=== PATIENT | male | born 1960 | race Caucasian/White ===

== ENCOUNTER 2021-05-04 19:29 | Inpatient (IN) | payer BC, SELFPAY ==
--- NOTE | ~2021-05-04 | XR_ITS ---
XR knee LT 3V DATE: 05/04/2021 20:24 INDICATION: Fall. Pain behind patella. TECHNIQUE: 3 views including crosstable lateral COMPARISON: None FINDINGS: There is left knee arthroplasty without patellar resurfacing. There is moderate suprapatellar knee joint effusion. There is osteopenia. There is mild particular spurring of the patella. No fracture, dislocation, periosteal reaction or bone destruction is detected. There there are chronic soft tissue calcifications in the suprapatellar and infrapatellar area. IMPRESSION: Moderate suprapatellar knee joint effusion; no recent fracture or dislocation is evident Osteopenia Left knee arthroplasty Reviewed, dictated and finalized at location A. IMPRESSION: Moderate suprapatellar knee joint effusion; no recent fracture or d islocation is evident Osteopenia Left knee arthroplasty
--- NOTE | ~2021-05-04 | XR_ITS ---
EXAMINATION: XR knee LT 3V EXAM DATE: 05/09/2021 11:38 INDICATION: Increased left knee swelling and pain, fall one week ago. TECHNIQUE: Three projections of the left knee. Comparison is made to prior examination from 05/04/2021 . FINDINGS: Left knee arthroplasty hardware in expected position. There is been interval increase in s ize of the joint fluid, now large. There are no acute fractures identified. Breast. IMPRESSION: Intact arthroplasty hardware. Large joint effusion. Reviewed, dictated and finalized at location B.
--- NOTE | ~2021-05-04 | XR_ITS ---
XR chest 1V portable DATE: 05/04/2021 19:51 INDICATION: Syncope. Hypotension. TECHNIQUE: Portable AP chest on 05/04/2021 at 1948 hours COMPARISON: None FINDINGS: Normal heart size. No hilar or mediastinal enlargement. No pulmonary infiltrate or consolid ation, pleural effusion or pulmonary vascular congestion or pneumothorax. Status post lower anterior cervical spine surgical fusion. Diffuse idiopathic skeletal hyperostosis o f the thoracic spine. IMPRESSION: No active cardiopulmonary disease Reviewed, dictated and finalized at location A.
--- NOTE | ~2021-05-04 | CT_ITS ---
EXAMINATION: CT abdomen pelvis wo con EXAM DATE: 05/04/2021 22:39 INDICATION: Diarrhea for 3 weeks. Hernias. Low blood pressure. TECHNIQUE: Spiral CT of the abdomen and pelvis was performed without contrast. Axial, coronal and s agittal images of the abdomen and pelvis were reviewed. The dose-length product (DLP) for this exami nation was 1691.51 mGy-cm. The exposure was tailored according to patient size (auto mA exposure con trol), and iterative reconstruction (ASIR) was used as additional dose reduction technique. Compariso n is made to prior examination from 06/23/2013. FINDINGS: There is a right adrenal gland adenoma measuring 2.0 cm. The liver, spleen, adrenal glands and pancreas are otherwise unremarkable. Gallbladder is unremarkable. No biliary obstruction. The re is no nephrolithiasis or hydronephrosis. The prostate is unremarkable. The bladder is unremarka ble. There is no retroperitoneal or pelvic lymphadenopathy. The appendix is normal. The stomach and small bowel are unremarkable. Colonic fluid and mildly appe aring sigmoid wall, diarrhea and possible mild colitis. No free intraperitoneal gas. The heart is normal in size. There are no pericardial or pleural effusions. The lung bases are unremarkable. T here are no osteoblastic or osteolytic lesions identified. IMPRESSION: 1. Diarrhea, possible mild sigmoid colitis. 2. Right adrenal adenoma. Reviewed, dictated and finalized at location B.
[2021-05-04 19:29] VITALS: BP 87/43; PULSE 92; RESP 14; TEMP 36.6; O2SAT 98
[2021-05-04 19:30] VITALS: PULSE 92
[2021-05-04] MEDS: SODIUM CHLORIDE 0.9% IV 1,000 ML 999 ML IV CONT ×2 (19:30→20:24)
--- NOTE | 2021-05-04 19:31 | ED.SYNCOPE ---
HPI - Syncope General Chief Complaint: Syncope Stated Complaint: ambulance Time Seen by Provider: 05/04/21 19:31 Source: patient Mode of arrival: EMS Limitations: no limitations History of Present Illness HPI narrative: 61-year-old man with a history of type 2 diabetes brought to the emergency department by EMS after passing out twice this evening. Patient states for the last 2 or 3 weeks he has had lightheadedness with standing that gets better after standing for moment or resting. He has had no syncopal episodes until today. He states that he has had diarrhea for last 2 or 3 weeks and is scheduled to follow-up with his automation analyst next month for a colonoscopy. He is currently taking eluxadoline for his symptoms. Today he stood up to go to the restroom and felt lightheaded, fell to the ground, and was unconscious for a few moments. He tried to set up after a couple minutes and he passed out again. patient states that in addition to his diarrhea he has had no central air in his home. MD complaint: loss of consciousness, felt faint and collapsed Onset (ago): minute(s) -: second(s) Prodromal symptoms: lightheaded Witnessed: Yes - by Bystander Context: standing up Injuries sustained associated with event: LLE ( Knee pain) Current symptoms: lightheaded and weakness Treatments prior to arrival: none Related Data Home Medications Medication Instructions Recorded Confirmed allopurinol 300 mg PO DAILY 05/04/21 05/04/21 amitriptyline 50 mg PO HS 05/04/21 05/04/21 atorvastatin 5 mg PO DAILY 05/04/21 05/04/21 celecoxib 100 mg PO BID 05/04/21 05/04/21 cyclobenzaprine 10 mg PO HS PRN 05/04/21 05/04/21 diclofenac sodium 1 ea TOPICAL BID 05/04/21 05/04/21 dulaglutide [Trulicity] 1.5 mg SUBCUT DAILY 05/04/21 05/04/21 eluxadoline [Viberzi] 100 mg PO BID 05/04/21 05/04/21 gabapentin 400 mg PO TID 05/04/21 05/04/21 glipizide 10 mg PO DAILY 05/04/21 05/04/21 losartan 25 mg PO DAILY 05/04/21 05/04/21 topiramate [Trokendi XR] 50 mg PO DAILY 05/04/21 05/04/21 Allergies Allergy/AdvReac Type Severity Reaction Status Date / Time Penicillins Allergy Verified 06/23/13 17:36 Review of Systems Review of Systems: All systems reviewed & are unremarkable except as noted in HPI and below Constitutional: Constitutional: Denies chills, Denies fever(s) and Reports weakness Eyes: Eyes: Denies change in vision and Denies photophobia ENT: Denies dysphagia, Denies nasal congestion and Denies sore throat Cardiovascular: Cardiovascular: Denies chest pain and Denies radiating jaw, neck or arm pain Respiratory: Respiratory: Denies cough, Denies dyspnea and Denies wheezing Gastrointestinal: Gastrointestinal: Denies abdominal pain, Reports diarrhea, Denies nausea and Denies vomiting Genitourinary: Genitourinary: Denies dysuria and Denies urinary frequency Musculoskeletal: Musculoskeletal: Reports as per HPI, Denies back pain, Reports arthralgias and Denies joint swelling Integumentary/Breasts: Skin/Breast: Denies pruritus, Denies erythema and Denies rash Neurologic: Denies vertigo, Denies dizziness and Denies syncope Hematologic/Lymphatic: Hematologic/Lymphatic: Denies easy bleeding and Denies easy bruising Allergic/Immunologic: Allergic/Immunologic: Denies lip swelling and Denies throat swelling PMFSH Past Medical History Medical History (Updated 05/05/21 @ 01:47 by Angel Bocanegra MD) Gout Hyperlipidemia Hypertension Neuropathy Type 2 diabetes mellitus Surgical History Surgical History (Updated 05/04/21 @ 20:43 by Angel Bocanegra MD) H/O cervical spine surgery History of ear surgery Total knee replacement status bilateral Social History Social History (Updated 05/04/21 @ 20:44 by Angel Bocanegra MD) Smoking status: Never smoker Living arrangements: with family Exam Const: General: alert and ill appearing acutely Orientation/consciousness: patient oriented x3 Limitations: no limitations Other: mi
--- NOTE | 2021-05-04 19:39 | ECG_ITS ---
Measurements Intervals [place] Rate: 88 P: 59 NV: 157 QRS: 0 QRSD: 118 T: 32 QT: 365 QTc: 444 Interpretive Statements SINUS RHYTHM EARLY PRECORDIAL R/S TRANSITION MINIMAL Q WAVES- INFERIOR LEADS BORDERLINE ST ABNORMALITY- ANTEROLATERAL LEADS BORDERLINE ECG Electronically Signed On 05-05-2021 6:11:44 CDT by Jarrod Mercedes D.O.
[2021-05-04 20:19] VITALS: BP 87/43; PULSE 92; RESP 14; TEMP 36.6; O2SAT 98
[2021-05-04 20:30] LABS: Basophils Absolute Auto 0.04 K/mm3 (0.00-0.10); Basophils Percent Auto 0.3 % (0.0-1.0); Eosinophils Absolute Auto 0.01 K/mm3 (0.02-0.50); Eosinophils Percent Auto 0.1 % (1.0-6.0); Hematocrit 29.8 % (40.0-54.0); Hemoglobin 9.8 g/dL (14.0-18.0); Immature Granulocyte Absolute 0.17 K/mm3 (0.00-0.00); Immature Granulocyte Percent A 1.1 % (0.0-0.0); Immature Platelet Fraction Pct 0.9 % (1.0-7.0); Lymphocytes Absolute Auto 1.33 K/mm3 (1.10-4.50); Lymphocytes Percent Auto 8.8 % (18.0-42.0); Mean Corpuscular HGB Conc 32.9 g/dL (32.0-36.0); Mean Corpuscular Hemoglobin 27.6 pg (27.0-31.0); Mean Corpuscular Volume 83.9 fL (78.0-102.0); Mean Platelet Volume 9.2 fl (8.7-11.0); Monocytes Absolute Auto 0.82 K/mm3 (0.10-0.90); Monocytes Percent Auto 5.4 % (2.0-11.0); Neutrophils Absolute Auto 12.8 K/mm3 (1.7-7.2); Neutrophils Percent Auto 84.3 % (50.0-70.0); Platelet Count Result 577 K/mm3 (150-420); Red Blood Count 3.55 M/mm3 (4.70-6.10); Red Cell Distribution Width 13.9 % (11.6-14.4); White Blood Count 15.2 K/mm3 (4.8-10.8)
[2021-05-04 20:40] LABS: Alanine Aminotransferase 21 U/L (16-63); Albumin Level 2.2 g/dL (3.4-5.0); Alkaline Phosphatase 127 U/L (46-116); Anion Gap 13 mmol/L (8-16); Aspartate Amino Transferase 11 U/L (15-37); Bilirubin,Total 0.3 mg/dL (0.00-1.00); Blood Urea Nitrogen 28 mg/dL (7-18); Carbon Dioxide 24 mmol/L (21-32); Chloride 97 mmol/L (98-108); Estimated CRCL calculation 26 ml/min; Estimated Glomerular Filt Rate 19; Glucose 121 mg/dL (70-99); Magnesium 1.9 mg/dL (1.8-2.4); Osmolality Calculated 284 mOsm/kg (285-295); Sodium 134 mmol/L (136-145); Total Protein 6.8 g/dL (6.4-8.2)
[2021-05-04 20:45] LABS: Lactic Acid Reflex 2.3 mmol/L (0.4-2.0); Potassium 2.2 mmol/L (3.5-5.1)
[2021-05-04 20:48] LABS: CRP > 10.6 mg/dL (0.0-0.9); Lipase 30 U/L (73-393)
--- NOTE | 2021-05-04 21:00 | PC.NURSE ---
[facility] transfer line contacted. awaiting call back
[2021-05-04] MEDS: KCL 20 MEQ/SW 100 ML 100 ML 50 MEQ IVPB (21:10)
--- NOTE | 2021-05-04 21:55 | PC.NURSE ---
Delbert at [facility] transfer center called back at this time to inform RN that he is waiting for Dr. Carrasco from [facility] to call back. bertram houston notified
--- NOTE | 2021-05-04 22:01 | PC.NURSE ---
Dr. Carrasco, hospitalist at [facility], called back at this time to speak with Dr. Bocanegra.
[2021-05-04 22:03] LABS: SARS-CoV-2 Ag Negative (Negative)
--- NOTE | 2021-05-04 22:19 | PC.NURSE ---
rn spoke with Kandi vtc technician to request er hold room. room 207 provided.
[2021-05-04 22:27] LABS: Occult Blood Negative (Negative)
--- NOTE | 2021-05-04 22:43 | PC.NURSE ---
telephone report provided to sonia olivarez.
--- NOTE | 2021-05-04 23:00 | PC.NURSE ---
Pt. taken to M/S Rm 207 as ER Hold until bed is available at [facility]. Report given to MIRIAM River
[2021-05-04] MEDS: PANTOPRAZOLE SODIUM IV 40 MG VIAL 80 MG IV PUSH (23:16)
[2021-05-04] MEDS: SODIUM CHLORIDE 0.9% IV 1,000 ML 200 ML IV CONT (23:16)
[2021-05-04 23:25] VITALS: BP 102/53; PULSE 85; RESP 18; TEMP 36.6; O2SAT 96
[2021-05-04 23:25] LABS: Reflex Lactic Acid Yes or No Add Lactic
--- NOTE | 2021-05-04 23:25 | PC.NURSE ---
Patient brought to room 207 for ER Hold at 2325 on 05/04/21. Patient was transferred to the bed by three nurses on duty. Patient was made comfortably, and vitals were obtained. Patient asked for water, and was given ice chips to see how he tolerated them. Patient's IV was re-started at 200 mL per hour on the pump. Patient's epperson is draining well, and the stat-lock remains in place. Patient stated he was resting comfortably, and not in need of anything else at this time.
[2021-05-05] VITALS (9 sets, daily range): BP systolic 91–106; BP diastolic 50–63; PULSE 63–88; RESP 18–20; TEMP 36.4–36.8; O2SAT 93–98
--- NOTE | 2021-05-05 00:05 | PC.NURSE ---
Patient rounding completed. Patient stated that his daughter had brought in some of his things and left them in the ER for pick-up. His belongings were delivered to him. Patient stated that he did not need anything else at this time.
--- NOTE | 2021-05-05 00:10 | PC.NURSE ---
Cardiac monitoring began and was charted at 0010 on 05/05/21. Patient's AZ was 0.16; QRS was 0.07; QT was 0.4. ST segment was normal. Telemetry indicated NSR with some artifact. Cardiac review of telemetry indicated some missing beats, and multifocal PVC's on occasion.
--- NOTE | 2021-05-05 02:11 | PC.NURSE ---
Patient rounding completed. Patient woke shortly before, and asked for something to eat. Patient on a clear liquid diet, so jello and juice is all that is available. Patient also needed the bedpan. He had a small bowel movement, diarrhea that is brownish yellow in color. Sensi-care protective ointment was placed on his bottom.
[2021-05-05 02:14] LABS: Appearance Urine Clear (Clear); Bilirubin Urine Negative (Negative); Color Urine Light Yellow (Yellow); Glucose Urine UA Negative (Negative); Ketones Urine Negative (Negative); Leukocyte Esterase Ur Trace LEU/UL (Negative); Nitrate Urine Negative (Negative); Protein Urine Trace (Negative); Urobilinogen Urine 0.2 mg/dL (0.2-1.0); pH Urine 5.5 (5.0-8.0)
[2021-05-05 02:14] LABS: Hematocrit 38.6 % (40.0-54.0)
[2021-05-05 02:18] LABS: Anion Gap 12 mmol/L (8-16); Blood Urea Nitrogen 28 mg/dL (7-18); Calcium 7.9 mg/dL (8.5-10.1); Carbon Dioxide 24 mmol/L (21-32); Chloride 102 mmol/L (98-108); Estimated CRCL calculation 31 ml/min; Estimated Glomerular Filt Rate 24; Glucose 83 mg/dL (70-99); Osmolality Calculated 290 mOsm/kg (285-295); Sodium 138 mmol/L (136-145)
[2021-05-05 02:22] LABS: Lactic Acid 1.1 mmol/L (0.4-2.0)
[2021-05-05 02:34] LABS: Add Urine Microscopic? YES; Blood Urine Trace (Negative)
[2021-05-05 02:37] LABS: RBC Urine 0-2 /hpf (0-2); WBC Urine 0-3 /hpf (0-3)
[2021-05-05 02:38] LABS: Bacteria Urine 1+ /hpf; Mucus Urine Few /lpf; Squamous Epithelial Cell Urine Few /hpf (Few)
[2021-05-05 02:41] LABS: Potassium 2.4 mmol/L (3.5-5.1)
--- NOTE | 2021-05-05 02:42 | PC.NURSE ---
KCL level reported to doctor. Instruction received to give 2nd dose of KCL
[2021-05-05 02:43] LABS: Phosphorus 3.8 mg/dL (2.6-4.7)
[2021-05-05] MEDS: KCL 20 MEQ/SW 100 ML 100 ML 50 MEQ IVPB ×2 (02:56→09:52)
[2021-05-05] MEDS: SODIUM CHLORIDE 0.9% IV 1,000 ML 200 ML IV CONT ×3 (04:00→16:30)
--- NOTE | 2021-05-05 04:01 | PC.NURSE ---
NS completed . Doctor notified and new order received to continue NS at 200 ml/hour.
[2021-05-05 04:04] LABS: Glucose Point of Care 83 mg/dl (65-105)
--- NOTE | 2021-05-05 04:05 | PC.NURSE ---
Cardiac monitoring completed at 0301. Patient's strip showed MD interval of 0.16; QRS of 0.08' and QT interval of 0.42. ST segment is normal. Strip shows normal sinus rhythm with a heart rate of 79. Vitals taken at 0400. Results yielded a temperature of 97.2; Heart rate of 82; respiratory rate of 18; O2 sat of 94%; and blood pressure of 109/51. Results are consistent with last two readings. Blood glucose was completed at the same time, with a reading of 83. Patient went back to sleep after everything was completed.
--- NOTE | 2021-05-05 05:00 | PC.NURSE ---
Completed patient rounding. Patient had an oral intake of 240 mL of fluid, and an output of 1050 mL of urine. Patient requested tylenol for pain in his knee.
[2021-05-05 06:13] LABS: Basophils Absolute Auto 0.02 K/mm3 (0.00-0.10); Basophils Percent Auto 0.1 % (0.0-1.0); Eosinophils Absolute Auto 0.04 K/mm3 (0.02-0.50); Eosinophils Percent Auto 0.3 % (1.0-6.0); Hematocrit 29.4 % (40.0-54.0); Hemoglobin 9.6 g/dL (14.0-18.0); Immature Granulocyte Absolute 0.14 K/mm3 (0.00-0.00); Lymphocytes Percent Auto 14.4 % (18.0-42.0); Mean Corpuscular HGB Conc 32.7 g/dL (32.0-36.0); Mean Corpuscular Hemoglobin 27.4 pg (27.0-31.0); Mean Corpuscular Volume 83.8 fL (78.0-102.0); Mean Platelet Volume 9.5 fl (8.7-11.0); Monocytes Absolute Auto 0.89 K/mm3 (0.10-0.90); Monocytes Percent Auto 6.4 % (2.0-11.0); Neutrophils Absolute Auto 10.8 K/mm3 (1.7-7.2); Neutrophils Percent Auto 77.8 % (50.0-70.0); Platelet Count Result 545 K/mm3 (150-420); Red Blood Count 3.51 M/mm3 (4.70-6.10); White Blood Count 13.9 K/mm3 (4.8-10.8)
[2021-05-05 06:39] LABS: Alanine Aminotransferase 20 U/L (16-63); Alkaline Phosphatase 118 U/L (46-116); Anion Gap 11 mmol/L (8-16); Aspartate Amino Transferase 15 U/L (15-37); Bilirubin,Total 0.3 mg/dL (0.00-1.00); Blood Urea Nitrogen 26 mg/dL (7-18); Carbon Dioxide 24 mmol/L (21-32); Chloride 103 mmol/L (98-108); Estimated CRCL calculation 34 ml/min; Estimated Glomerular Filt Rate 26; Glucose 93 mg/dL (70-99); Osmolality Calculated 290 mOsm/kg (285-295); Sodium 138 mmol/L (136-145); Total Protein 6.4 g/dL (6.4-8.2)
[2021-05-05 06:45] LABS: Potassium 2.3 mmol/L (3.5-5.1)
--- NOTE | 2021-05-05 06:45 | PC.NURSE ---
Doctor notified of critical lab result. Orders to follow.
[2021-05-05] MEDS: metroNIDAZOLE 500 MG/ISO 100ML 500 MG/100 ML BAG 100 MG IVPB ×3 (08:26→22:38)
[2021-05-05] MEDS: ATORVASTATIN 5 MG TABLET PO (08:31)
[2021-05-05] MEDS: POTASSIUM CHLORIDE 20 MEQ TABLET 40 MEQ PO (08:31)
[2021-05-05] MEDS: GABAPENTIN 400 MG CAPSULE PO ×3 (08:32→16:29)
[2021-05-05] MEDS: allopurinoL 300 MG TABLET PO (08:32)
[2021-05-05] MEDS: TOPIRAMATE 25 MG TABLET PO ×2 (08:32→20:04)
--- NOTE | 2021-05-05 09:19 | PM.EVENT ---
Event Note Event Note Event Note: Patient had what appears to be a abscess to his left buttocks
--- NOTE | 2021-05-05 10:44 | PC.NURSE ---
Patient status changed from ER hold to inpatient.
--- NOTE | 2021-05-05 10:50 | PM.IMHP ---
H&P: HPI History of Present Illness Date/Time: 05/05/21 10:50 this is a 61-year-old male that presented to emergency department status post syncopal episode x2. Patient has a past medical history of gout, hyperlipidemia, hypertension, neuropathy and type 2 diabetes with irritable bowel syndrome. Patient notes while ambulating to the house he blacked out, he did have relatives at the house with him he noted once he became conscious and attempted to get up he blacked out again. Patient notes that he has had diarrhea for the last 2 weeks he describes his stool as liquid and brown in color denies any blood in his stool, he notes that he has had plenty of fluids. Today patient continues to have liquid stool with flatulence.. Patient CT of the abdomen indicates diarrhea with sigmoid colitis, WBCs 15.2, hemoglobin 9.8, hematocrit 29.8, platelets 577, sodium 138, potassium 3.2, BUN 28, creatinine 3.28, glucose 83, lactic acid ,2.3 CRP greater than 10,mag 1.9 alt21, ast 11, cov neg, ekg sr hr 88cxr unremarkable, left knee no fx or dislocation. Patient continues to have discomfort to his left abdominal area. He also has an abscess to his left buttocks area. The patient denies SOB, CP, palpitation, extremity numbness, lightheadedness, dizziness, constipation, chills, or fever. Patient being admitted as inpatient to be treated for colitis, dehydration, and hypokalemia Inpatient 60 minutes Disposition Home with self-care Chief Complaint: weakness, diarrhea Review of Systems Review of Systems: A 14 organ system Review of Systems was performed and pertinent positives included in the HPI, otherwise remaining ROS is negative. [facility] Past Medical History Medical History (Updated 05/05/21 @ 12:01 by MIKALA Kramer) Gout Hyperlipidemia Hypertension Neuropathy Type 2 diabetes mellitus Surgical History Surgical History (Updated 05/04/21 @ 20:43 by Angel Bocanegra MD) H/O cervical spine surgery History of ear surgery Total knee replacement status bilateral Social History Social History (Updated 05/04/21 @ 20:44 by Angel Bocanegra MD) Smoking status: Never smoker Alcohol intake: never Substance use: never Living arrangements: with family Spiritual care concerns: No Meds Home Medications and Allergies Home Medications Medication Instructions Recorded Confirmed Type allopurinol 300 mg PO DAILY 05/04/21 05/04/21 History amitriptyline 50 mg PO HS 05/04/21 05/04/21 History atorvastatin 5 mg PO DAILY 05/04/21 05/04/21 History celecoxib 100 mg PO BID 05/04/21 05/04/21 History cyclobenzaprine 10 mg PO HS PRN 05/04/21 05/04/21 History diclofenac sodium 1 ea TOPICAL BID 05/04/21 05/04/21 History dulaglutide [Trulicity] 1.5 mg SUBCUT WEEKLY 05/04/21 05/06/21 History eluxadoline [Viberzi] 100 mg PO BIDWM 05/04/21 05/06/21 History gabapentin 400 mg PO TID 05/04/21 05/04/21 History glipizide 10 mg PO DAILY 05/04/21 05/04/21 History losartan 25 mg PO DAILY 05/04/21 05/04/21 History topiramate [Trokendi XR] 50 mg PO DAILY 05/04/21 05/04/21 History Allergies Allergy/AdvReac Type Severity Reaction Status Date / Time Penicillins Allergy Verified 06/23/13 17:36 Vital Signs Vital Signs - 24 hr 05/04/21 19:29 05/04/21 19:30 05/04/21 20:19 Temperature 98 F 98 F Pulse Rate 92 92 92 Respiratory Rate 14 14 Blood Pressure 87/43 L 87/43 L Pulse Oximetry 98 98 05/04/21 23:25 05/05/21 00:30 Temperature 97.8 F 97.8 F Pulse Rate 85 85 Respiratory Rate 18 Blood Pressure 102/53 L 100/50 L Pulse Oximetry 96 93 Exam Narrative: GENERAL: This is a well-nourished, well-developed patient, in no apparent distress. HEAD: normocephalic, atraumatic. EYES: PERRL. Sclera clear/white. Vision is grossly intact. EARS: External ears normal, auditory canals clear and without drainage, TMs normal without perforation. Hearing grossly intact. NOSE: External nose normal with no obvious nasal discharge, nares without re
[2021-05-05 12:11] LABS: Glucose Point of Care 143 mg/dl (65-105)
[2021-05-05] MEDS: HYDROcodone/acetaminophen (*CRX) 5-325 MG TABLET 1 TAB PO (12:14)
[2021-05-05] MEDS: CIPROFLOXACIN 400 MG/D5W 200ML 200 ML 200 MG IVPB ×2 (12:16→20:04)
[2021-05-05 13:04] LABS: Immature Reticulocyte Fraction 11.1 % (2.0-16.52); Reticulocyte Hemoglobin Conten 32.3 pg (28.0-35.0); Reticulocyte Percent 1.03 % (0.50-1.50); Reticulocytes Absolute 0.04 M/mm3 (0.02-0.1)
[2021-05-05 13:45] LABS: Ferritin 345 ng/mL (26-388); Lactate Dehydrogenase 118 U/L (85-227)
[2021-05-05 13:48] LABS: Bilirubin Direct 0.1 mg/dL (0-0.2); Bilirubin,Total 0.3 mg/dL (0.00-1.00)
--- NOTE | 2021-05-05 14:30 | PHAR ---
SPOKE W/[facility]. PT. TAKES TRULICITY 1.5MG SQ INJ WEEKLY, LAST GOT 3 MOS 02/14/21. NURSE FITZGERALD CONFIRMED PT TAKES ON THURSDAYS. HE SAID IF STILL HERE HIS FAMILY CAN BRING IN HOME MED. TLS
--- NOTE | 2021-05-05 14:54 | PHAR ---
VERIFIED PT.'S HOME MEDS VIBERZI 100MG TAB AND TRULICITY 1.5MG SUBQ PEN,. TLS
[2021-05-05] MEDS: CELECOXIB 100 MG CAPSULE PO (16:29)
[2021-05-05] MEDS: DICLOFENAC SODIUM 1% 100 GM GEL (*BKC) 1 APPLIC TOPICAL (16:36)
[2021-05-05 16:39] LABS: Glucose Point of Care 161 mg/dl (65-105)
[2021-05-05] MEDS: AMITRIPTYLINE HCL 25 MG TABLET 50 MG PO (20:03)
[2021-05-05 20:26] LABS: Glucose Point of Care 179 mg/dl (65-105)
[2021-05-06] VITALS (14 sets, daily range): BP systolic 96–136; BP diastolic 49–79; PULSE 75–93; RESP 18–20; TEMP 35.7–37.1; O2SAT 80–97
[2021-05-06] MEDS: SODIUM CHLORIDE 0.9% IV 1,000 ML 200 ML IV CONT ×2 (00:35→06:04)
[2021-05-06 02:28] LABS: Occult Blood Negative (Negative)
[2021-05-06 05:13] LABS: Hematocrit 27.7 % (40.0-54.0); Hemoglobin 8.7 g/dL (14.0-18.0); Mean Corpuscular HGB Conc 31.4 g/dL (32.0-36.0); Mean Corpuscular Hemoglobin 26.8 pg (27.0-31.0); Mean Corpuscular Volume 85.2 fL (78.0-102.0); Mean Platelet Volume 9.3 fl (8.7-11.0); Platelet Count Result 495 K/mm3 (150-420); Red Blood Count 3.25 M/mm3 (4.70-6.10); Red Cell Distribution Width 14.2 % (11.6-14.4); White Blood Count 11.1 K/mm3 (4.8-10.8)
[2021-05-06 05:22] LABS: Occult Blood Negative (Negative)
[2021-05-06 05:41] LABS: Alanine Aminotransferase 19 U/L (16-63); Albumin Level 1.7 g/dL (3.4-5.0); Alkaline Phosphatase 119 U/L (46-116); Anion Gap 10 mmol/L (8-16); Aspartate Amino Transferase 14 U/L (15-37); Bilirubin,Total 0.3 mg/dL (0.00-1.00); Blood Urea Nitrogen 18 mg/dL (7-18); CRP 12.8 mg/dL (0.0-0.9); Calcium 7.8 mg/dL (8.5-10.1); Carbon Dioxide 24 mmol/L (21-32); Chloride 106 mmol/L (98-108); Estimated CRCL calculation 51 ml/min; Estimated Glomerular Filt Rate 43; Glucose 131 mg/dL (70-99); Osmolality Calculated 293 mOsm/kg (285-295); Sodium 140 mmol/L (136-145); Total Protein 5.9 g/dL (6.4-8.2)
[2021-05-06] MEDS: metroNIDAZOLE 500 MG/ISO 100ML 500 MG/100 ML BAG 100 MG IVPB ×3 (06:04→22:20)
[2021-05-06 07:58] LABS: Glucose Point of Care 124 mg/dl (65-105)
[2021-05-06] MEDS: CIPROFLOXACIN 400 MG/D5W 200ML 200 ML 200 MG IVPB ×2 (08:51→20:59)
[2021-05-06] MEDS: glipiZIDE XL 5 MG TABCR 10 MG PO (08:52)
[2021-05-06] MEDS: allopurinoL 300 MG TABLET PO (08:52)
[2021-05-06] MEDS: CELECOXIB 100 MG CAPSULE PO ×2 (08:52→16:51)
[2021-05-06] MEDS: POTASSIUM CHLORIDE 20 MEQ TABLET 40 MEQ PO (08:52)
[2021-05-06] MEDS: TOPIRAMATE 25 MG TABLET PO ×2 (08:52→21:02)
[2021-05-06] MEDS: GABAPENTIN 400 MG CAPSULE PO ×3 (08:52→16:52)
[2021-05-06] MEDS: ATORVASTATIN 5 MG TABLET PO (08:53)
--- NOTE | 2021-05-06 10:00 | P.PNIM_ITS ---
Progress Note: A&P Assessment and Plan (1) Colitis: Code(s): K52.9 - Noninfective gastroenteritis and colitis, unspecified <Alex MacTHOMAS Esquivel - Last Filed: 05/06/21 14:16> Status: Acute <Alxe CoreasKATHY parsons-C - Last Filed: 05/06/21 14:16> Assessment and Plan: * Imaging indicates diarrhea possible mild sigmoid colitis * Continue Cipro and Flagyl * Continue IV fluids * Occult blood negative * Chest x-ray no new findings * CRP elevated greater than 10.6 * Lactic acid * WBC 15.2>13.9 * lactic acid 2.3>1.1 * C. difficile negative * Stool panel pending * Blood cultures pending 05/06/2021 Continue Cipro and Flagyl, monitor renal function which is improved this AM 1.65, WBC 11.1, Stool for O&P and Blood Cx pending, Negative for C diff, Buttocks wound Cx Gram Negative Bacilli <Alex MacArnoldo Summers APN-C - Last Filed: 05/06/21 14:16> (2) Acute hypokalemia: Code(s): E87.6 - Hypokalemia <Alex MacArnoldo Summers APN-C - Last Filed: 05/06/21 14:16> Status: Acute <Alex Rider THOMAS Summers - Last Filed: 05/06/21 14:16> Assessment and Plan: * Possibly secondary to dehydration * Potassium 2.2>2.4>2.3 * Total of 80 mEq given * Repeat potassium * Continue supplement until within normal limits 05/06/2021 Potassium 3 today, supplemented with 40 mEq PO today. May need to get a Magnesium level if K remains low, likely d/t diarrhea. <Alex MacArnoldo Summers APN-C - Last Filed: 05/06/21 14:16> (3) Acute renal failure: Qualifiers: Acute renal failure type: unspecified Qualified Code(s): N17.9 - Acute kidney failure, unspecified <JOAO CabralesC - Last Filed: 05/06/21 14:16> Code(s): N17.9 - Acute kidney failure, unspecified <JOAO CabralesC - Last Filed: 05/06/21 14:16> Status: Acute <Alex Summers APN-C - Last Filed: 05/06/21 14:16> Assessment and Plan: * Possibly secondary to dehydration * Creatinine 3.28>2.77>2.52, improving * Continue IV hydration * Renal dose medication * Avoid nephrotoxic agents * CMP in a.m. 05/06/2021 Cr 1.65 which is an improvement, continue to avoid nephrotoxic agents, continue to monitor renal function <Alex Summers APN-C - Last Filed: 05/06/21 14:16> (4) Hyperlipidemia: Code(s): E78.5 - Hyperlipidemia, unspecified <Alex Summers APN-C - Last Filed: 05/06/21 14:16> Status: Acute <Alex Summers APN-C - Last Filed: 05/06/21 14:16> Assessment and Plan: * Continue statins <Alex Summers APN-C - Last Filed: 05/06/21 14:16> (5) Hypertension: Code(s): I10 - Essential (primary) hypertension <Alex Summers ASSURANCE ENGINEER-C - Last Filed: 05/06/21 14:16> Status: Acute <Alex Summers APN-C - Last Filed: 05/06/21 14:16> Assessment and Plan: * Stable * Will hold losartan 25 mg daily, will resume when appropriate * Vital signs as ordered 05/06/2021 BP is a little soft 90-110/50-60, Stable, no changes at this time <Alex Summers ASSURANCE ENGINEER-C - Last Filed: 05/06/21 14:16> (6) Type 2 diabetes mellitus: Qualifiers: Diabetes mellitus complication detail: with polyneuropathy Diabetes mellitus complication status: with neurologic complications Diabetes mellitus custodial insulin use: without custodial use Qualified Code(s): E11.42 - Type 2 diabetes mellitus with diabetic polyneuropathy <Alex SummersKATHY-C - Last Filed: 05/06/21 14:16> Code(s): E11.9 - Type 2 diabetes mellitus without complications <Alex Summers ASSURANCE ENGINEER-C - Last Filed: 05/06/21 14:16>
--- NOTE | 2021-05-06 10:00 | PM.IMPN ---
Progress Note: A&P Assessment and Plan (1) Colitis: Code(s): K52.9 - Noninfective gastroenteritis and colitis, unspecified <Alex CoreasTHOMAS parsons - Last Filed: 05/06/21 14:16> Status: Acute <Alex SummersTHOMAS - Last Filed: 05/06/21 14:16> Assessment and Plan: Imaging indicates diarrhea possible mild sigmoid colitis Continue Cipro and Flagyl Continue IV fluids Occult blood negative Chest x-ray no new findings CRP elevated greater than 10.6 Lactic acid WBC 15.2>13.9 lactic acid 2.3>1.1 C. difficile negative Stool panel pending Blood cultures pending 05/06/2021 Continue Cipro and Flagyl, monitor renal function which is improved this AM 1.65, WBC 11.1, Stool for O&P and Blood Cx pending, Negative for C diff, Buttocks wound Cx Gram Negative Bacilli <Alex MacArnoldo JossKATHY parsons-C - Last Filed: 05/06/21 14:16> (2) Acute hypokalemia: Code(s): E87.6 - Hypokalemia <Alex MacArnoldo JossKATHY parsons-C - Last Filed: 05/06/21 14:16> Status: Acute <Alex CoreasTHOMAS parsons - Last Filed: 05/06/21 14:16> Assessment and Plan: Possibly secondary to dehydration Potassium 2.2>2.4>2.3 Total of 80 mEq given Repeat potassium Continue supplement until within normal limits 05/06/2021 Potassium 3 today, supplemented with 40 mEq PO today. May need to get a Magnesium level if K remains low, likely d/t diarrhea. <Alex MacTHOMAS Esquivel - Last Filed: 05/06/21 14:16> (3) Acute renal failure: Qualifiers: Acute renal failure type: unspecified Qualified Code(s): N17.9 - Acute kidney failure, unspecified <Alex MacJOAO EsquivelC - Last Filed: 05/06/21 14:16> Code(s): N17.9 - Acute kidney failure, unspecified <Alex MacTHOMAS Esquivel - Last Filed: 05/06/21 14:16> Status: Acute <Alex Summers RADIOGRAPHER MAMMOGRAPHER-C - Last Filed: 05/06/21 14:16> Assessment and Plan: Possibly secondary to dehydration Creatinine 3.28>2.77>2.52, improving Continue IV hydration Renal dose medication Avoid nephrotoxic agents CMP in a.m. 05/06/2021 Cr 1.65 which is an improvement, continue to avoid nephrotoxic agents, continue to monitor renal function <Alex Summers RADIOGRAPHER MAMMOGRAPHER-C - Last Filed: 05/06/21 14:16> (4) Hyperlipidemia: Code(s): E78.5 - Hyperlipidemia, unspecified <Alex Summers RADIOGRAPHER MAMMOGRAPHER-C - Last Filed: 05/06/21 14:16> Status: Acute <Alex Summers RADIOGRAPHER MAMMOGRAPHER-C - Last Filed: 05/06/21 14:16> Assessment and Plan: Continue statins <Alex Summers RADIOGRAPHER MAMMOGRAPHER-C - Last Filed: 05/06/21 14:16> (5) Hypertension: Code(s): I10 - Essential (primary) hypertension <Alex Summers RADIOGRAPHER MAMMOGRAPHER-C - Last Filed: 05/06/21 14:16> Status: Acute <Alex Summers RADIOGRAPHER MAMMOGRAPHER-C - Last Filed: 05/06/21 14:16> Assessment and Plan: Stable Will hold losartan 25 mg daily, will resume when appropriate Vital signs as ordered 05/06/2021 BP is a little soft 90-110/50-60, Stable, no changes at this time <Alex Summers RADIOGRAPHER MAMMOGRAPHER-C - Last Filed: 05/06/21 14:16> (6) Type 2 diabetes mellitus: Qualifiers: Diabetes mellitus complication detail: with polyneuropathy Diabetes mellitus complication status: with neurologic complications Diabetes mellitus rodent exterminator insulin use: without mcfp use Qualified Code(s): E11.42 - Type 2 diabetes mellitus with diabetic polyneuropathy <Alex SummersKATHY-C - Last Filed: 05/06/21 14:16> Code(s): E11.9 - Type 2 diabetes mellitus without complications <Alex CoreasKATHY parsons-C - Last Filed: 05/06/21 14:16> Status: Acute <Alex Summers RADIOGRAPHER MAMMOGRAPHER-C - Last Filed: 05/06/21 14:16> Assessment and Plan: Blood sugar stable Continue diabetic diet Continue hypoglycemic protocol with sliding scale in Accu-Cheks Will adjust medication as needed 05/06/2021 Glucose well controlled at this time, no changes to be made at this time <Alex Summers APN-C - Last Shamir
[2021-05-06] MEDS: KCL 20 MEQ/SW 100 ML 100 ML 50 MEQ IVPB (10:52)
[2021-05-06 11:58] LABS: Glucose Point of Care 170 mg/dl (65-105)
[2021-05-06] MEDS: HYDROcodone/acetaminophen (*CRX) 5-325 MG TABLET 1 TAB PO (14:47)
--- NOTE | 2021-05-06 16:17 | PC.NURSE ---
1430 pt and ot work with him. up in recliner after with feet up. prn pain med given for knee. ice pack to l knee applied. sr on tele
[2021-05-06 16:28] LABS: Glucose Point of Care 125 mg/dl (65-105)
[2021-05-06] MEDS: CAPSAICIN 0.025% CREAM 60 GM TUBE 1 APPLIC TOPICAL (17:34)
[2021-05-06] MEDS: SODIUM CHLORIDE 0.9% IV 1,000 ML 100 ML IV CONT (18:38)
[2021-05-06] MEDS: AMITRIPTYLINE HCL 25 MG TABLET 50 MG PO (21:02)
[2021-05-06 21:11] LABS: Glucose Point of Care 118 mg/dl (65-105)
[2021-05-07] VITALS (14 sets, daily range): BP systolic 104–120; BP diastolic 58–74; PULSE 72–94; RESP 18–20; TEMP 36–36.6; O2SAT 94–99
[2021-05-07 05:18] LABS: Hematocrit 28.1 % (40.0-54.0); Hemoglobin 9.1 g/dL (14.0-18.0); Mean Corpuscular HGB Conc 32.4 g/dL (32.0-36.0); Mean Corpuscular Hemoglobin 27.7 pg (27.0-31.0); Mean Corpuscular Volume 85.7 fL (78.0-102.0); Mean Platelet Volume 9.1 fl (8.7-11.0); Platelet Count Result 482 K/mm3 (150-420); Red Blood Count 3.28 M/mm3 (4.70-6.10); Red Cell Distribution Width 14.6 % (11.6-14.4); White Blood Count 9.6 K/mm3 (4.8-10.8)
[2021-05-07 05:30] LABS: Anion Gap 8 mmol/L (8-16); Blood Urea Nitrogen 10 mg/dL (7-18); Calcium 7.9 mg/dL (8.5-10.1); Carbon Dioxide 25 mmol/L (21-32); Chloride 111 mmol/L (98-108); Estimated CRCL calculation 64 ml/min; Estimated Glomerular Filt Rate 56; Glucose 73 mg/dL (70-99); Osmolality Calculated 296 mOsm/kg (285-295); Potassium 2.8 mmol/L (3.5-5.1); Sodium 144 mmol/L (136-145)
[2021-05-07] MEDS: metroNIDAZOLE 500 MG/ISO 100ML 500 MG/100 ML BAG 100 MG IVPB ×3 (05:36→21:31)
[2021-05-07] MEDS: HYDROcodone/acetaminophen (*CRX) 5-325 MG TABLET 1 TAB PO ×2 (08:00→14:32)
[2021-05-07] MEDS: SODIUM CHLORIDE 0.9% IV 1,000 ML 100 ML IV CONT ×2 (08:02→19:49)
[2021-05-07] MEDS: CIPROFLOXACIN 400 MG/D5W 200ML 200 ML 200 MG IVPB ×2 (08:02→19:47)
[2021-05-07] MEDS: ATORVASTATIN 5 MG TABLET PO (08:03)
[2021-05-07] MEDS: allopurinoL 300 MG TABLET PO (08:03)
[2021-05-07] MEDS: glipiZIDE XL 5 MG TABCR 10 MG PO (08:03)
[2021-05-07] MEDS: CELECOXIB 100 MG CAPSULE PO ×2 (08:03→17:23)
[2021-05-07] MEDS: CAPSAICIN 0.025% CREAM 60 GM TUBE 1 APPLIC TOPICAL ×2 (08:04→14:33)
[2021-05-07] MEDS: GABAPENTIN 400 MG CAPSULE PO ×3 (08:04→17:23)
[2021-05-07] MEDS: TOPIRAMATE 25 MG TABLET PO ×2 (08:04→21:31)
[2021-05-07 08:27] LABS: Magnesium 1.4 mg/dL (1.8-2.4)
[2021-05-07 08:33] LABS: Glucose Point of Care 106 mg/dl (65-105)
--- NOTE | 2021-05-07 09:30 | P.PNIM_ITS ---
Progress Note: A&P Assessment and Plan (1) Colitis: Code(s): K52.9 - Noninfective gastroenteritis and colitis, unspecified <Alex MacTHOMAS Esquivel - Last Filed: 05/07/21 12:56> Status: Acute <Alex Rider THOMAS Summers - Last Filed: 05/07/21 12:56> Assessment and Plan: * Imaging indicates diarrhea possible mild sigmoid colitis * Continue Cipro and Flagyl * Continue IV fluids * Occult blood negative * Chest x-ray no new findings * CRP elevated greater than 10.6 * Lactic acid * WBC 15.2>13.9 * lactic acid 2.3>1.1 * C. difficile negative * Stool panel pending * Blood cultures pending 05/06/2021 Continue Cipro and Flagyl, monitor renal function which is improved this AM 1.65, WBC 11.1, Stool for O&P and Blood Cx pending, Negative for C diff, Buttocks wound Cx Gram Negative Bacilli 05/07/2021 Florastor added, pain improved, diarrhea continues, no changes to Abx, WBC 9.6, H/H 9.1/28.1, K 2.8, Mag 1.4, tolerating liquids PO well, advancing to full liquid diet <Alex MacTHOMAS Esquivel - Last Filed: 05/07/21 12:56> (2) Acute hypokalemia: Code(s): E87.6 - Hypokalemia <Alex MacTHOMAS Esquivel - Last Filed: 05/07/21 12:56> Status: Acute <Alex MacTHOMAS Esquivel - Last Filed: 05/07/21 12:56> Assessment and Plan: * Possibly secondary to dehydration * Potassium 2.2>2.4>2.3 * Total of 80 mEq given * Repeat potassium * Continue supplement until within normal limits 05/06/2021 Potassium 3 today, supplemented with 40 mEq PO today. May need to g et a Magnesium level if K remains low, likely d/t diarrhea. 05/07/2021 K 2.8 this AM and supplemented with 20 mEq IVPB potassium and 60 total mEq PO potassium, Magnesium was checked and found to be 1.4 and supplemented with 2 gm Mag Ronak. Will recheck in the AM. <Alex Summers APN-C - Last Filed: 05/07/21 12:56> (3) Acute renal failure: Qualifiers: Acute renal failure type: unspecified Qualified Code(s): N17.9 - Acute kidney failure, unspecified <Alex Summers APN-C - Last Filed: 05/07/21 12:56> Code(s): N17.9 - Acute kidney failure, unspecified <Alex Summers APN-C - Last Filed: 05/07/21 12:56> Status: Acute <Alex Summers APN-C - Last Filed: 05/07/21 12:56> Assessment and Plan: * Possibly secondary to dehydration * Creatinine 3.28>2.77>2.52, improving * Continue IV hydration * Renal dose medication * Avoid nephrotoxic agents * CMP in a.m. 05/06/2021 Cr 1.65 which is an improvement, continue to avoid nephrotoxic agents, continue to monitor renal function 05/07/2021 Cr improved to 1.31, continue as noted above <Alex Summers APN-C - Last Filed: 05/07/21 12:56> (4) Hyperlipidemia: Code(s): E78.5 - Hyperlipidemia, unspecified <Alex Summers APN-C - Last Filed: 05/07/21 12:56> Status: Acute <Alex Summers APN-C - Last Filed: 05/07/21 12:56> Assessment and Plan: * Continue statins <Alex Summers APN-C - Last Filed: 05/07/21 12:56> (5) Hypertension: Code(s): I10 - Essential (primary) hypertension <Alex Summers APN-C - Last Filed: 05/07/21 12:56> Status: Acute <Alex Summers APN-C - Last Filed: 05/07/21 12:56> Assessment and Plan: * Stable * Will hold losartan 25 mg daily, will resume when appropriate * Vital signs as ordered 05/06/2021 BP is a little soft 90-110/50-60, Stable, no changes at this time 05/07/2021 BP 100-130/60-70 HR 70-90s, stable <Alex Summers APN-C - Last Filed: 05/07/21 12:56> (6) Type 2 diabetes mellitus: Qualifiers
--- NOTE | 2021-05-07 09:30 | PM.IMPN ---
Progress Note: A&P Assessment and Plan (1) Colitis: Code(s): K52.9 - Noninfective gastroenteritis and colitis, unspecified <THOMAS Cabrales - Last Filed: 05/07/21 12:56> Status: Acute <THOMAS Cabrlaes - Last Filed: 05/07/21 12:56> Assessment and Plan: Imaging indicates diarrhea possible mild sigmoid colitis Continue Cipro and Flagyl Continue IV fluids Occult blood negative Chest x-ray no new findings CRP elevated greater than 10.6 Lactic acid WBC 15.2>13.9 lactic acid 2.3>1.1 C. difficile negative Stool panel pending Blood cultures pending 05/06/2021 Continue Cipro and Flagyl, monitor renal function which is improved this AM 1.65, WBC 11.1, Stool for O&P and Blood Cx pending, Negative for C diff, Buttocks wound Cx Gram Negative Bacilli 05/07/2021 Florastor added, pain improved, diarrhea continues, no changes to Abx, WBC 9.6, H/H 9.1/28.1, K 2.8, Mag 1.4, tolerating liquids PO well, advancing to full liquid diet <THOMAS Cabrales - Last Filed: 05/07/21 12:56> (2) Acute hypokalemia: Code(s): E87.6 - Hypokalemia <THOMAS Cabrales - Last Filed: 05/07/21 12:56> Status: Acute <THOMAS Cabrales - Last Filed: 05/07/21 12:56> Assessment and Plan: Possibly secondary to dehydration Potassium 2.2>2.4>2.3 Total of 80 mEq given Repeat potassium Continue supplement until within normal limits 05/06/2021 Potassium 3 today, supplemented with 40 mEq PO today. May need to get a Magnesium level if K remains low, likely d/t diarrhea. 05/07/2021 K 2.8 this AM and supplemented with 20 mEq IVPB potassium and 60 total mEq PO potassium, Magnesium was checked and found to be 1.4 and supplemented with 2 gm Mag Ronak. Will recheck in the AM. <THOMAS Cabrales - Last Filed: 05/07/21 12:56> (3) Acute renal failure: Qualifiers: Acute renal failure type: unspecified Qualified Code(s): N17.9 - Acute kidney failure, unspecified <Alex SummersJOAOC - Last Filed: 05/07/21 12:56> Code(s): N17.9 - Acute kidney failure, unspecified <Alex SummersKATHYMagnusC - Last Filed: 05/07/21 12:56> Status: Acute <Alex SummersKATHYMagnusC - Last Filed: 05/07/21 12:56> Assessment and Plan: Possibly secondary to dehydration Creatinine 3.28>2.77>2.52, improving Continue IV hydration Renal dose medication Avoid nephrotoxic agents CMP in a.m. 05/06/2021 Cr 1.65 which is an improvement, continue to avoid nephrotoxic agents, continue to monitor renal function 05/07/2021 Cr improved to 1.31, continue as noted above <Alex SummersJOAOC - Last Filed: 05/07/21 12:56> (4) Hyperlipidemia: Code(s): E78.5 - Hyperlipidemia, unspecified <Alex SummersKATHY-C - Last Filed: 05/07/21 12:56> Status: Acute <Alex SummersJOAOC - Last Filed: 05/07/21 12:56> Assessment and Plan: Continue statins <Alex SummersKATHY-C - Last Filed: 05/07/21 12:56> (5) Hypertension: Code(s): I10 - Essential (primary) hypertension <Alex SummersKATHY-C - Last Filed: 05/07/21 12:56> Status: Acute <Alex SummersKATHY-C - Last Filed: 05/07/21 12:56> Assessment and Plan: Stable Will hold losartan 25 mg daily, will resume when appropriate Vital signs as ordered 05/06/2021 BP is a little soft 90-110/50-60, Stable, no changes at this time 05/07/2021 BP 100-130/60-70 HR 70-90s, stable <Alex SummersKATHY-C - Last Filed: 05/07/21 12:56> (6) Type 2 diabetes mellitus: Qualifiers: Diabetes mellitus complication detail: with polyneuropathy Diabetes mellitus complication status: with neurologic complications Diabetes mellitus terminal clerk insulin use: without assisted use Qualified Code(s): E11.42 - Type 2 diabetes mellitus with diabetic polyneuropathy <THOMAS Cabrales - Last Filed: 05/07/21 12:56> Code(s): E11.9 - Type
[2021-05-07] MEDS: POTASSIUM CHLORIDE 20 MEQ TABLET 60 MEQ PO (10:22)
[2021-05-07] MEDS: KCL 20 MEQ/SW 100 ML 100 ML 50 MEQ IVPB (10:22)
[2021-05-07 11:34] LABS: Glucose Point of Care 163 mg/dl (65-105)
[2021-05-07] MEDS: MAGNESIUM SULF 2 GM/WATER 50ML 2 GM/50 ML BAG IVPB (12:42)
[2021-05-07] MEDS: SACCHAROMYCES BOULARDII 250 MG CAPSULE PO ×2 (12:43→17:24)
[2021-05-07 17:30] LABS: Glucose Point of Care 86 mg/dl (65-105)
[2021-05-07 20:59] LABS: Transferrin 142 mg/dL (188-341)
[2021-05-07 21:00] LABS: Haptoglobin 492 mg/dL (43-212)
[2021-05-07] MEDS: AMITRIPTYLINE HCL 25 MG TABLET 50 MG PO (21:31)
[2021-05-08] VITALS (14 sets, daily range): BP systolic 85–126; BP diastolic 59–75; PULSE 74–100; RESP 18; TEMP 36.2–36.7; O2SAT 96–99
[2021-05-08 00:17] LABS: Glucose Point of Care 106 mg/dl (65-105)
--- NOTE | 2021-05-08 02:30 | PC.NURSE ---
Completed patient rounding. Patient was sleeping comfortably in bed, with no signs of pain or discomfort.
--- NOTE | 2021-05-08 03:33 | PC.NURSE ---
Patient rang for the commode. Patient was able to ambulate to the commode, using the gait belt and the walker. Patient had difficulty raising his legs to get back in bed, and needed some help. Patient stated that he did not need anything else, and prepared to go back to sleep.
[2021-05-08 05:36] LABS: Hematocrit 29.7 % (40.0-54.0); Hemoglobin 9.4 g/dL (14.0-18.0); Immature Platelet Fraction Pct 0.6 % (1.0-7.0); Mean Corpuscular HGB Conc 31.6 g/dL (32.0-36.0); Mean Corpuscular Hemoglobin 26.9 pg (27.0-31.0); Mean Corpuscular Volume 85.1 fL (78.0-102.0); Mean Platelet Volume 8.9 fl (8.7-11.0); Platelet Count Result 547 K/mm3 (150-420); Red Blood Count 3.49 M/mm3 (4.70-6.10); Red Cell Distribution Width 14.7 % (11.6-14.4); White Blood Count 11.2 K/mm3 (4.8-10.8)
[2021-05-08 05:49] LABS: Anion Gap 7 mmol/L (8-16); Blood Urea Nitrogen 5 mg/dL (7-18); Carbon Dioxide 24 mmol/L (21-32); Chloride 112 mmol/L (98-108); Estimated CRCL calculation 75 ml/min; Estimated Glomerular Filt Rate > 60; Glucose 99 mg/dL (70-99); Magnesium 1.5 mg/dL (1.8-2.4); Osmolality Calculated 293 mOsm/kg (285-295); Potassium 3.6 mmol/L (3.5-5.1); Sodium 143 mmol/L (136-145)
[2021-05-08] MEDS: metroNIDAZOLE 500 MG/ISO 100ML 500 MG/100 ML BAG 100 MG IVPB ×3 (06:24→22:57)
[2021-05-08] MEDS: CIPROFLOXACIN 400 MG/D5W 200ML 200 ML 200 MG IVPB ×2 (08:03→20:24)
[2021-05-08] MEDS: ATORVASTATIN 5 MG TABLET PO (08:04)
[2021-05-08] MEDS: allopurinoL 300 MG TABLET PO (08:05)
[2021-05-08] MEDS: SACCHAROMYCES BOULARDII 250 MG CAPSULE PO ×3 (08:05→16:43)
[2021-05-08] MEDS: glipiZIDE XL 5 MG TABCR 10 MG PO (08:05)
[2021-05-08] MEDS: CELECOXIB 100 MG CAPSULE PO ×2 (08:06→16:43)
[2021-05-08] MEDS: GABAPENTIN 400 MG CAPSULE PO ×3 (08:06→16:43)
[2021-05-08] MEDS: TOPIRAMATE 25 MG TABLET PO ×2 (08:06→20:49)
--- NOTE | 2021-05-08 08:10 | P.PNIM_ITS ---
Progress Note: A&P Assessment and Plan (1) Colitis: Code(s): K52.9 - Noninfective gastroenteritis and colitis, unspecified Status: Acute Assessment and Plan: * Imaging indicates diarrhea possible mild sigmoid colitis * Continue Cipro and Flagyl * Continue IV fluids * Occult blood negative * Chest x-ray no new findings * CRP elevated greater than 10.6 * Lactic acid * WBC 15.2>13.9 * lactic acid 2.3>1.1 * C. difficile negative * Stool panel pending * Blood cultures pending 05/06/2021 Continue Cipro and Flagyl, monitor renal function which is improved this AM 1.65, WBC 11.1, Stool for O&P and Blood Cx pending, Negative for C diff, Buttocks wound Cx Gram Negative Bacilli 05/07/2021 Florastor added, pain improved, diarrhea continues, no changes to Abx, WBC 9.6, H/H 9.1/28.1, K 2.8, Mag 1.4, tolerating liquids PO well, advancing to full liquid diet 05/08/2021 Advanced diet to heart healthy, diarrhea is improved now more soft formed, continue with Abx, WBC 11.1, H/H 9.4/29.7 (2) Acute hypokalemia: Code(s): E87.6 - Hypokalemia Status: Acute Assessment and Plan: * Possibly secondary to dehydration * Potassium 2.2>2.4>2.3 * Total of 80 mEq given * Repeat potassium * Continue supplement until within normal limits 05/06/2021 Potassium 3 today, supplemented with 40 mEq PO today. May need to get a Magnesium level if K remains low, likely d/t diarrhea. 05/07/2021 K 2.8 this AM and supplemented with 20 mEq IVPB potassium and 60 total mEq PO potassium, Magnesium was checked and found to be 1.4 and supplemented with 2 gm Mag Ronak. Will recheck in the AM. 05/08/2021 Potassium 3.6 today, Mag 1.4 supplemented with 4 gm Mag Ronak, 2 gm did not seem to do much yesterday (3) Acute renal failure: Qualifiers: Acute renal failure type: unspecified Qualified Code(s): N17.9 - Acute kidney failure, unspecified Code(s): N17.9 - Acute kidney failure, unspecified Status: Acute Assessment and Plan: * Possibly secondary to dehydration * Creatinine 3.28>2.77>2.52, improving * Continue IV hydration * Renal dose medication * Avoid nephrotoxic agents * CMP in a.m. 05/06/2021 Cr 1.65 which is an improvement, continue to avoid nephrotoxic agents, continue to monitor renal function 05/07/2021 Cr improved to 1.31, continue as noted above 05/08/2021 Cr improved to 1.12, Pt tolerating PO well, IVF DC'ed (4) Hyperlipidemia: Code(s): E78.5 - Hyperlipidemia, unspecified Status: Acute Assessment and Plan: * Continue statins (5) Hypertension: Code(s): I10 - Essential (primary) hypertension Status: Acute Assessment and Plan: * Stable * Will hold losartan 25 mg daily, will resume when appropriate * Vital signs as ordered 05/06/2021 BP is a little soft 90-110/50-60, Stable, no changes at this time 05/07/2021 BP 100-130/60-70 HR 70-90s, stable 05/08/2021 BP 100-120/50-70 HR 70-80, stable (6) Type 2 diabetes mellitus: Qualifiers: Diabetes mellitus complication detail: with polyneuropathy Diabetes mellitus complication status: with neurologic complications 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
--- NOTE | 2021-05-08 08:10 | PM.IMPN ---
Progress Note: A&P Assessment and Plan (1) Colitis: Code(s): K52.9 - Noninfective gastroenteritis and colitis, unspecified Status: Acute Assessment and Plan: Imaging indicates diarrhea possible mild sigmoid colitis Continue Cipro and Flagyl Continue IV fluids Occult blood negative Chest x-ray no new findings CRP elevated greater than 10.6 Lactic acid WBC 15.2>13.9 lactic acid 2.3>1.1 C. difficile negative Stool panel pending Blood cultures pending 05/06/2021 Continue Cipro and Flagyl, monitor renal function which is improved this AM 1.65, WBC 11.1, Stool for O&P and Blood Cx pending, Negative for C diff, Buttocks wound Cx Gram Negative Bacilli 05/07/2021 Florastor added, pain improved, diarrhea continues, no changes to Abx, WBC 9.6, H/H 9.1/28.1, K 2.8, Mag 1.4, tolerating liquids PO well, advancing to full liquid diet 05/08/2021 Advanced diet to heart healthy, diarrhea is improved now more soft formed, continue with Abx, WBC 11.1, H/H 9.4/29.7 (2) Acute hypokalemia: Code(s): E87.6 - Hypokalemia Status: Acute Assessment and Plan: Possibly secondary to dehydration Potassium 2.2>2.4>2.3 Total of 80 mEq given Repeat potassium Continue supplement until within normal limits 05/06/2021 Potassium 3 today, supplemented with 40 mEq PO today. May need to get a Magnesium level if K remains low, likely d/t diarrhea. 05/07/2021 K 2.8 this AM and supplemented with 20 mEq IVPB potassium and 60 total mEq PO potassium, Magnesium was checked and found to be 1.4 and supplemented with 2 gm Mag Ronak. Will recheck in the AM. 05/08/2021 Potassium 3.6 today, Mag 1.4 supplemented with 4 gm Mag Ronak, 2 gm did not seem to do much yesterday (3) Acute renal failure: Qualifiers: Acute renal failure type: unspecified Qualified Code(s): N17.9 - Acute kidney failure, unspecified Code(s): N17.9 - Acute kidney failure, unspecified Status: Acute Assessment and Plan: Possibly secondary to dehydration Creatinine 3.28>2.77>2.52, improving Continue IV hydration Renal dose medication Avoid nephrotoxic agents CMP in a.m. 05/06/2021 Cr 1.65 which is an improvement, continue to avoid nephrotoxic agents, continue to monitor renal function 05/07/2021 Cr improved to 1.31, continue as noted above 05/08/2021 Cr improved to 1.12, Pt tolerating PO well, IVF DC'ed (4) Hyperlipidemia: Code(s): E78.5 - Hyperlipidemia, unspecified Status: Acute Assessment and Plan: Continue statins (5) Hypertension: Code(s): I10 - Essential (primary) hypertension Status: Acute Assessment and Plan: Stable Will hold losartan 25 mg daily, will resume when appropriate Vital signs as ordered 05/06/2021 BP is a little soft 90-110/50-60, Stable, no changes at this time 05/07/2021 BP 100-130/60-70 HR 70-90s, stable 05/08/2021 BP 100-120/50-70 HR 70-80, stable (6) Type 2 diabetes mellitus: Qualifiers: Diabetes mellitus complication detail: with polyneuropathy Diabetes mellitus complication status: with neurologic complications 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 insulin use: without extermination inspector use Qualified Code(s): E11.42 - Type 2 diabetes mellitus with diabetic polyneuropathy Code(s): E11.9 - Type 2 diabetes mellitus without complications Status: Acute Assessment and Plan: Blood sugar stable Continue diabetic diet Continue hypoglycemic protocol with sliding scale in Accu-Cheks Will adjust medication as needed 05/06/2021 Glucose well controlled at this time, no changes to be made at this time 05/07/2021 Glucose 106-179, continue to monitor 05/08/2021 86-163, continue to monitor (7) Acute hypotension: Code(s): I95.9 - Hypotension, unspecified Status: Acute Assessment and Plan: BP 87/43>102/53 improving>100/50 improving Secondary to dehydration Will continue IV fluid 05/06/2021 BP Stable as noted above 05/07/2021 Resolved at this time 05/08/2021
[2021-05-08] MEDS: SODIUM CHLORIDE 0.9% IV 1,000 ML 100 ML IV CONT (08:15)
[2021-05-08] MEDS: MAGNESIUM SULF 4 GM/WATER100ML 4 GM/100 ML BAG IVPB (10:22)
--- NOTE | 2021-05-08 10:25 | PC.NURSE ---
Jonathon bandage to left knee
[2021-05-08 12:16] LABS: Glucose Point of Care 136 mg/dl (65-105)
[2021-05-08 17:05] LABS: Glucose Point of Care 105 mg/dl (65-105)
--- NOTE | 2021-05-08 19:25 | PC.NURSE ---
Completed bedside change of shift report and updated board. Patient is sleeping comfortably in his bed, with no signs of pain or discomfort. Patient is reported to have just 1 diarrhea episode after lunch, with no other BMs reported.
[2021-05-08] MEDS: AMITRIPTYLINE HCL 25 MG TABLET 50 MG PO (20:49)
[2021-05-08 22:52] LABS: Glucose Point of Care 71 mg/dl (65-105)
[2021-05-08] MEDS: ACETAMINOPHEN 500 MG TABLET 1000 MG PO (23:01)
[2021-05-08 23:22] LABS: Glucose Point of Care 116 mg/dl (65-105)
[2021-05-09] VITALS: BP 115/60; PULSE 80; RESP 18; TEMP 36.4; O2SAT 93
[2021-05-09 02:00] VITALS: PULSE 82
--- NOTE | 2021-05-09 02:10 | PC.NURSE ---
Completed patient rounding. Patient is sleeping comfortably in bed, with no signs of pain or discomfort.
[2021-05-09 04:00] VITALS: BP 122/72; PULSE 76; RESP 18; TEMP 36.2; O2SAT 96
[2021-05-09 05:30] LABS: Hematocrit 33.2 % (40.0-54.0); Hemoglobin 10.7 g/dL (14.0-18.0); Immature Platelet Fraction Pct 0.8 % (1.0-7.0); Mean Corpuscular HGB Conc 32.2 g/dL (32.0-36.0); Mean Corpuscular Hemoglobin 27.3 pg (27.0-31.0); Mean Corpuscular Volume 84.7 fL (78.0-102.0); Platelet Count Result 677 K/mm3 (150-420); Red Blood Count 3.92 M/mm3 (4.70-6.10); Red Cell Distribution Width 14.9 % (11.6-14.4); White Blood Count 13.5 K/mm3 (4.8-10.8)
[2021-05-09 05:39] LABS: Anion Gap 12 mmol/L (8-16); Blood Urea Nitrogen 5 mg/dL (7-18); Calcium 8.4 mg/dL (8.5-10.1); Carbon Dioxide 23 mmol/L (21-32); Chloride 109 mmol/L (98-108); Estimated CRCL calculation 69 ml/min; Estimated Glomerular Filt Rate > 60; Glucose 74 mg/dL (70-99); Magnesium 1.9 mg/dL (1.8-2.4); Osmolality Calculated 294 mOsm/kg (285-295); Sodium 144 mmol/L (136-145)
[2021-05-09 06:00] VITALS: PULSE 78
[2021-05-09] MEDS: HYDROcodone/acetaminophen (*CRX) 5-325 MG TABLET 1 TAB PO (06:40)
[2021-05-09] MEDS: metroNIDAZOLE 500 MG/ISO 100ML 500 MG/100 ML BAG 100 MG IVPB (06:41)
[2021-05-09 08:00] VITALS: BP 116/75; PULSE 77; RESP 20; TEMP 36.1; O2SAT 97
[2021-05-09] MEDS: CIPROFLOXACIN 400 MG/D5W 200ML 200 ML 200 MG IVPB (09:21)
[2021-05-09] MEDS: GABAPENTIN 400 MG CAPSULE PO (09:22)
[2021-05-09] MEDS: glipiZIDE XL 5 MG TABCR 10 MG PO (09:22)
[2021-05-09] MEDS: CELECOXIB 100 MG CAPSULE PO (09:22)
[2021-05-09] MEDS: allopurinoL 300 MG TABLET PO (09:22)
[2021-05-09] MEDS: SACCHAROMYCES BOULARDII 250 MG CAPSULE PO (09:22)
[2021-05-09] MEDS: ATORVASTATIN 5 MG TABLET PO (09:22)
[2021-05-09] MEDS: TOPIRAMATE 25 MG TABLET PO (09:22)
[2021-05-09 11:57] LABS: Glucose Point of Care 129 mg/dl (65-105)
[2021-05-09 12:00] VITALS: BP 104/66; PULSE 81; RESP 20; TEMP 36.4; O2SAT 97
--- NOTE | 2021-05-09 13:15 | PM.DS ---
DS: Admitting Diagnosis Admitting Diagnosis Colitis DS: Discharge Diagnosis Discharge Diagnosis (1) Colitis: Code(s): K52.9 - Noninfective gastroenteritis and colitis, unspecified Status: Acute Assessment and Plan: Imaging indicates diarrhea possible mild sigmoid colitis Continue Cipro and Flagyl Continue IV fluids Occult blood negative Chest x-ray no new findings CRP elevated greater than 10.6 Lactic acid WBC 15.2>13.9 lactic acid 2.3>1.1 C. difficile negative Stool panel pending Blood cultures pending 05/06/2021 Continue Cipro and Flagyl, monitor renal function which is improved this AM 1.65, WBC 11.1, Stool for O&P and Blood Cx pending, Negative for C diff, Buttocks wound Cx Gram Negative Bacilli 05/07/2021 Florastor added, pain improved, diarrhea continues, no changes to Abx, WBC 9.6, H/H 9.1/28.1, K 2.8, Mag 1.4, tolerating liquids PO well, advancing to full liquid diet 05/08/2021 Advanced diet to heart healthy, diarrhea is improved now more soft formed, continue with Abx, WBC 11.1, H/H 9.4/29.7 05/09/2021 Pt was able to tolerate the heart healthy diet, stool is more formed today, Pt DC home and needs to f/u with PCP (2) Acute hypokalemia: Code(s): E87.6 - Hypokalemia Status: Acute Assessment and Plan: Possibly secondary to dehydration Potassium 2.2>2.4>2.3 Total of 80 mEq given Repeat potassium Continue supplement until within normal limits 05/06/2021 Potassium 3 today, supplemented with 40 mEq PO today. May need to get a Magnesium level if K remains low, likely d/t diarrhea. 05/07/2021 K 2.8 this AM and supplemented with 20 mEq IVPB potassium and 60 total mEq PO potassium, Magnesium was checked and found to be 1.4 and supplemented with 2 gm Mag Ronak. Will recheck in the AM. 05/08/2021 Potassium 3.6 today, Mag 1.4 supplemented with 4 gm Mag Ronak, 2 gm did not seem to do much yesterday 05/09/2021 resolved (3) Acute renal failure: Qualifiers: Acute renal failure type: unspecified Qualified Code(s): N17.9 - Acute kidney failure, unspecified Code(s): N17.9 - Acute kidney failure, unspecified Status: Acute Assessment and Plan: Possibly secondary to dehydration Creatinine 3.28>2.77>2.52, improving Continue IV hydration Renal dose medication Avoid nephrotoxic agents CMP in a.m. 05/06/2021 Cr 1.65 which is an improvement, continue to avoid nephrotoxic agents, continue to monitor renal function 05/07/2021 Cr improved to 1.31, continue as noted above 05/08/2021 Cr improved to 1.12, Pt tolerating PO well, IVF DC'ed 05/09/2021 resolved Cr 1.21, cGFR > 60 (4) Hyperlipidemia: Code(s): E78.5 - Hyperlipidemia, unspecified Status: Acute Assessment and Plan: Continue statins (5) Hypertension: Code(s): I10 - Essential (primary) hypertension Status: Acute Assessment and Plan: Stable Will hold losartan 25 mg daily, will resume when appropriate Vital signs as ordered 05/06/2021 BP is a little soft 90-110/50-60, Stable, no changes at this time 05/07/2021 BP 100-130/60-70 HR 70-90s, stable 05/08/2021 BP 100-120/50-70 HR 70-80, stable 05/09/2021 VSS no need to adjust medications further. 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
--- NOTE | 2021-05-09 14:26 | PC.NURSE ---
Reviewed discharge instructions with patient. All questions answered. Pt escorted via wheelchair to front of hospital for discharge.
--- NOTE | 2021-05-09 15:09 | PCOTNOTE ---
On 05/09/21, the student, [ Rachell Bowens], provided care and completed [facility] documentation on this patient. I have reviewed the student's documentation and agree with the findings.MS
== END 2021-05-09 14:05 | disposition home health service (06) | DRG 392 ==
LOC: CHSED 19:53 → CHS2ND 22:55 → CHSED 05-05 10:54 → CHS2ND 05-05 10:59
PROVIDERS: Nurse Practitioner; Nurse Practitioner Family; Admitting Provider Emergency Medicine; Emergency Provider Emergency Medicine; PCP Internal Medicine; Visit Provider Emergency Medicine
DX: K52.9 Noninfective gastroenteritis and colitis, unspecified (principal); N17.9 Acute kidney failure, unspecified; L02.31 Cutaneous abscess of buttock; E87.6 Hypokalemia; E86.0 Dehydration; I95.9 Hypotension, unspecified; I10 Essential (primary) hypertension; D64.9 Anemia, unspecified; E78.5 Hyperlipidemia, unspecified; E11.40 Type 2 diabetes mellitus with diabetic neuropathy, unspecified; M10.9 Gout, unspecified; M25.562 Pain in left knee; Z96.653 Presence of artificial knee joint, bilateral
CPT/HCPCS: 36415; 71045; 73562; 74176; 80048; 80053; 81001; 82247; 82248; 82272; 82728; 82948; 83010; 83605; 83615; 83690; 83735; 84100; 84132; 84466; 85014; 85018; 85025; 85027; 85046; 85055; 86140; 87040; 87045; 87070; 87205; 87324; 87426; 87427; 93005; 96361; 96365; 96366; 96367; 96375; 97110; 97161; 97165; 97530; 97535; 99285; A9270; C9113; C9803; J0744; J3475; J3480; J7030